=== PATIENT | male | born 1980 | race Caucasian/White ===

== ENCOUNTER 2022-09-11 15:06 | Inpatient (IN) | payer MEDICAID ==
[~2022-09-11] VITALS: Ht 167.6 cm; Wt 81.2 kg
[2022-09-11 15:16] VITALS: BP 126/65
--- NOTE | 2022-09-11 15:18 | NUR ---
PT AMBULATED TO BED 5.
--- NOTE | 2022-09-11 15:28 | NUR ---
42YO MALE PT C/O THROBBING 10/10 L ARM PAIN X4DAYS. REPORTS ONSET AFTER POSSIBLE "SPIDER BITE" WHILE SITTING IN BACKYARD. PRESENTS WITH REDDENED NON PITTING SWELLING THROUGHOUT L ARM , MOST NOTED IN AC . CAP <3 REFILL THROUGHOUT , -LOSS OF SENSATION -NUMBING. PT UNABLE TO BEND AT ELBOW DUE TO SWELLING AND PAIN. DENIES TAKING MEDICATION, N/V/D, FEVER, CHILLS , SOB OR CHEST PAIN. PT AAOX4, HOB POSITIONED PER COMFORT. HX:DENIES NKA
--- NOTE | 2022-09-11 15:47 | NUR ---
MD CROSS AT BEDSIDE FOR EVALUATION
--- NOTE | 2022-09-11 15:48 | NUR ---
42/M PRESENTS TO ED WITH C/O LEFT ARM PAIN X4 DAYS S/P POSSIBLE BUG BITE IN HIS BACKYARD. PATIENT DENIES FEVERS, CHILLS, SOB, REDNESS, SWELLING AND TENDERNESS NOTED TO LEFT ARM. PATIENT DENIES NUMBNESS OR TINGLING, DENIES DRAINAGE FROM SITE.
[2022-09-11] MEDS ORDERED: PIPERACILLIN/TAZOBACTAM 3.375 GM in DEXTROSE 5% 50 ML IV ONE (16:00)
[2022-09-11] MEDS ORDERED: NACL 0.9% 1,000 ML IV ONE ×2 (16:00→18:05)
[2022-09-11] MEDS ORDERED: VANCOMYCIN 1,000 MG in DEXTROSE 5% 250 ML IV ONE (16:00)
--- NOTE | 2022-09-11 16:33 | NUR ---
RODGER SWAB COLLECTED AND WALKED TO LAB
[2022-09-11] MEDS ORDERED: PIPERACILLIN/TAZOBACTAM 3.375 GM VIAL IV ONE ×2 (16:55→23:44)
[2022-09-11] MEDS ORDERED: ONDANSETRON 4 MG/2 ML VIAL IVP ONE (16:55)
[2022-09-11] MEDS ORDERED: KETOROLAC 30 MG/ML VIAL IVP ONE (16:55)
[2022-09-11] MEDS ORDERED: MORPHINE SULFATE 4 MG/ML SYR IVP ONE (16:55)
--- NOTE | 2022-09-11 17:18 | NUR ---
pt encouraged to give urine sample. urinal left at bedside
[2022-09-11 17:29] LABS: BASOPHILS % (AUTO) 0.2 % (0.0-2.0); EOSINOPHILS # (AUTO) 0.1 K/uL (0-0.4); EOSINOPHILS % (AUTO) 0.8 % (0.0-4.0); HEMATOCRIT 37.1 % (36-52); HEMOGLOBIN 12.1 g/dL (12.0-18.0); LYMPHOCYTES # (AUTO) 1.8 K/uL (2.0-11.5); LYMPHOCYTES % (AUTO) 17.8 % (20.5-51.1); MEAN CORPUSCULAR HEMOGLOBIN 26 pg (27-31); MEAN CORPUSCULAR HGB CONC 33 g/dL (33-37); MEAN CORPUSCULAR VOLUME 80.7 fL (80-94); MONOCYTES # (AUTO) 0.5 K/uL (0.8-1.0); MONOCYTES % (AUTO) 5.1 % (1.7-9.3); NEUTROPHILS # (AUTO) 7.9 K/uL (1.8-7.7); NEUTROPHILS % (AUTO) 76.1 % (42.2-75.2); PLATELET COUNT (AUTO) 251 K/uL (140-450); RED CELL DISTRIBUTION WIDTH 17.5 % (11.6-13.7); WHITE BLOOD COUNT (AUTO) 10.4 K/uL (4.8-10.8)
[2022-09-11 17:48] LABS: ALBUMIN 2.8 g/dL (3.4-5.0); ANION GAP 11.7 (8-16); CARBON DIOXIDE 28.3 mmol/L (21-32); CREATININE 0.8 mg/dL (0.6-1.3); TOTAL BILIRUBIN 0.3 mg/dL (0.0-1.0)
--- NOTE | 2022-09-11 17:55 | NUR ---
VERBAL ORDER RECEIVED FROM MD CROSS. ORDERS READ BACK , CONFIRMED AND CARRIED OUT. 1L NS BOLUS ONCE PT ON 2L VIA NC
--- NOTE | 2022-09-11 17:55 | NUR ---
pt w/ new onset of 10/10 burning abd pain. MADE AWARE
[2022-09-11 18:10] LABS: APPEARANCE,URINE CLEAR (CLEAR); BILIRUBIN,URINE NEGATIVE (NEGATIVE); BLOOD, URINE NEGATIVE (NEGATIVE); COLOR,URINE YELLOW (YELLOW); LEUKOCYTE ESTERASE ,URINE NEGATIVE (NEGATIVE); NITRITE, URINE NEGATIVE (NEGATIVE); UGLUCOSE NEGATIVE (NEGATIVE)
--- NOTE | 2022-09-11 18:10 | NUR ---
PER DR. CROSS, [facility] AT THIS TIME.
[2022-09-11] MEDS ORDERED: VANCOMYCIN 1,000 MG VIAL ONE (18:15)
--- NOTE | 2022-09-11 19:26 | NUR ---
REPORT GIVEN TO NOÉ MONTERROSO. TRANSFER OF CARE AT THIS TIME
--- NOTE | 2022-09-11 19:45 | NUR ---
pt is resting on the bed, alert oriented x4. No respiratory distress noted.
[2022-09-11] MEDS ORDERED: ZOLPIDEM 5 MG TAB PO PRN (20:45)
[2022-09-11] MEDS ORDERED: guaiFENesin DM 200/20 MG-10 ML 10 ML UDC PO PRN (20:45)
[2022-09-11] MEDS ORDERED: DOCUSATE SODIUM 100 MG GELCAP PO PRN (20:45)
[2022-09-11] MEDS ORDERED: ACETAMINOPHEN 325 MG TAB PO PRN (20:45)
[2022-09-11] MEDS ORDERED: POTASSIUM CHLORIDE 10 MEQ TABER PO PRN (20:45)
[2022-09-11] MEDS ORDERED: ONDANSETRON 4 MG/2 ML VIAL IM/IVP PRN (20:45)
[2022-09-11] MEDS ORDERED: HYDROcodone/APAP 7.5/325 MG 1 TAB PO PRN (20:45)
[2022-09-11 21:55] VITALS: BP 131/69
--- NOTE | 2022-09-11 21:55 | NUR ---
PATIENT ADMITTED FROM ED, CAME VIA GURNEY. PATIENT IS ALERT AND ORIENTED X4, NO SIGNS OF DISTRESS NOTED. PATIENT IS AMBULATORY WITH STEADY GAIT, IS CONTINENT, USES THE RESTROOM. PATIENT'S LEFT UPPER IS SWOLLEN, HAS DIAGNOSIS OF CELLULITIS OF THE LEFT UPPER EXTREMITY. PATIENT ON ROOM AIR, IV ACCESS SITE ON RIGHT AC G 20, INTACT AND PATENT, RUNNING NS @ 100 ML/HR. MRSA SWAB DONE. ORIENTED PATIENT TO HIS ROOM, AND USE OF CALL LIGHT. SAFETY PRECAUTIONS IN PLACE. WILL CONTINUE TO MONITOR THE PATIENT.
[2022-09-11] MEDS: NACL 0.9% 1,000 ML IV SCH (22:00)
--- NOTE | 2022-09-11 22:24 | NUR ---
Patient will be admitted to care of dr interiano. Admited to [facility]. Will go to room 120 b. Belongings list completed. Report to della. pt left with his belonings
[2022-09-11 23:17] LABS: PROTHROMBIN TIME 9.2 secs (10.8-13.4)
[2022-09-11 23:18] LABS: CHOL/HDL RATIO 2.4 (1-4.5); FREE T4 (FREE THYROXINE) 1.32 ng/dL (0.76-1.46); MAGNESIUM 1.9 mg/dL (1.8-2.4); PHOSPHORUS 3.1 mg/dL (2.5-4.9); THYROID STIMULATING HORMONE 0.68 uIU/mL (0.34-3.74)
[2022-09-11] MEDS: PIPERACILLIN/TAZOBACTAM 3.375 GM in DEXTROSE 5% 50 ML IV SCH (23:49)
--- NOTE | 2022-09-11 23:50 | NUR ---
DUE ZOSYN GIVEN ORDERED.
[2022-09-12 01:40] LABS: BARBITURATE, URINE NEGATIVE ng/ml (NEG <=200); BENZODIAZEPINE, URINE NEGATIVE ng/mL (NEG <=200); CANNABINOID, URINE NEGATIVE ng/mL (NEG <=50); COCAINE, URINE NEGATIVE ng/mL (NEG <=300); OPIATE, URINE POSITIVE ng/mL (NEG <=2000); PHENCYCLIDINE SCREEN,URINE NEGATIVE ng/mL (NEG <=25)
--- NOTE | 2022-09-12 02:30 | NUR ---
PATIENT IS ASLEEP, NO SIGNS OF PAIN NOTED, BREATHING EVEN AND NON LABORED ON ROOM AIR, CALL LIGHT WITHIN REACH.
[2022-09-12] MEDS: MORPHINE SULFATE 2 MG/ML SYR IVP PRN ×2 (03:23→06:38)
--- NOTE | 2022-09-12 03:23 | NUR ---
PATIENT C/O 10/10 PAIN ON LEFT UE, PRN MORPHINE GIVEN ORDERED. BP 133/83. WILL CONTINUE TO MONITOR THE PATIENT. SAFETY PRECAUTIONS IN PLACE. CALL LIGHT WITHIN REACH.
[2022-09-12 04:00] VITALS: BP 133/92
[2022-09-12] MEDS ORDERED: PIPERACILLIN/TAZOBACTAM 3.375 GM VIAL IV ONE (05:12)
[2022-09-12] MEDS: PIPERACILLIN/TAZOBACTAM 3.375 GM in DEXTROSE 5% 50 ML IV SCH ×3 (05:23→17:02)
--- NOTE | 2022-09-12 05:25 | NUR ---
DUE ZOSYN GIVEN ORDERED. WILL CONTINUE TO MONITOR THE PATIENT. CALL LIGHT WITHIN REACH
--- NOTE | 2022-09-12 06:38 | NUR ---
PATIENT C/O 10/10 PAIN ON LEFT UPPER EXTREMITY, PRN MORPHINE GIVEN ORDERED. BP 132/89. WILL CONTINUE TO MONITOR THE PATIENT.
[2022-09-12] MEDS: NACL 0.9% 1,000 ML IV SCH ×2 (06:41→12:25)
[2022-09-12 07:20] LABS: ANION GAP 11.5 (8-16); CARBON DIOXIDE 27.8 mmol/L (21-32); CREATININE 0.8 mg/dL (0.6-1.3); POTASSIUM 4.3 mmol/L (3.5-5.1)
[2022-09-12 07:24] LABS: BASOPHILS % (AUTO) 0.3 % (0.0-2.0); EOSINOPHILS # (AUTO) 0.1 K/uL (0-0.4); EOSINOPHILS % (AUTO) 0.6 % (0.0-4.0); HEMATOCRIT 34.7 % (36-52); HEMOGLOBIN 11.2 g/dL (12.0-18.0); LYMPHOCYTES # (AUTO) 1.1 K/uL (2.0-11.5); MEAN CORPUSCULAR HEMOGLOBIN 26 pg (27-31); MEAN CORPUSCULAR HGB CONC 32 g/dL (33-37); MEAN CORPUSCULAR VOLUME 81.4 fL (80-94); MONOCYTES # (AUTO) 0.4 K/uL (0.8-1.0); MONOCYTES % (AUTO) 4.6 % (1.7-9.3); NEUTROPHILS # (AUTO) 8.1 K/uL (1.8-7.7); NEUTROPHILS % (AUTO) 83.5 % (42.2-75.2); PLATELET COUNT (AUTO) 231 K/uL (140-450); RED BLOOD CELL COUNT(AUTO) 4.27 MIL/uL (4.20-6.10); RED CELL DISTRIBUTION WIDTH 17.4 % (11.6-13.7); WHITE BLOOD COUNT (AUTO) 9.7 K/uL (4.8-10.8)
--- NOTE | 2022-09-12 07:27 | NUR ---
ASSUMED CONTINUITY OF CARE. INITIAL ASSESSMENT DONE. LUE ELEVATED WITH PILLOW. CALL LIGHT WITHIN REACH.
--- NOTE | 2022-09-12 07:27 | NUR ---
ENDORSED PATIENT TO NURSE MAGGIE FOR CONTINUITY OF CARE. NEEDS MET THROUGHOUT THE SHIFT. PATIENT IN STABLE CONDITION.
[2022-09-12 08:00] VITALS: BP 143/91
[2022-09-12] MEDS ORDERED: MORPHINE SULFATE 4 MG/ML SYR IVP PRN (08:16)
[2022-09-12] MEDS: PANTOPRAZOLE 40 MG TABEC PO SCH ×2 (09:00→09:06)
--- NOTE | 2022-09-12 10:56 | NUR ---
PATIENT HAS BEEN SCREENED AND CATEGORIZED MODERATE NUTRITION RISK. PATIENT WILL BE SEEN WITHIN 3-5 DAYS OF ADMISSION. REVIEWED BY SATYA CARY RD
[2022-09-12] MEDS: MORPHINE SULFATE 4 MG/ML SYR IVP PRN ×3 (12:30→20:53)
[2022-09-12 16:00] VITALS: BP 142/83
--- NOTE | 2022-09-12 19:10 | NUR ---
REPORT GIVEN TO JAYME SQUIRES. IVF INFUSING WELL. IN STABLE CONDITION.
--- NOTE | 2022-09-12 19:30 | NUR ---
RECEIVED PATIENT SITTING ON THE CHAIR, EATING, NO SIGNS OF DISTRESS NOTED, NO C/O PAIN. IV NS RUNNING @ 100ML/HR ON RIGHT WRIST, LINE PATENT AND INTACT. WILL CONTINUE TO MONITOR THE PATIENT.
--- NOTE | 2022-09-12 20:53 | NUR ---
PATIENT C/O 10/10 PAIN ON LEFT UPPER EXTREMITY, PRN MORPHINE GIVEN ORDERED. VITALS T 98.7, P 98, BP 137/88, RESP 18 AND O2 SATS 99% ON ROOM AIR. CALL LIGHT WITHIN REACH, BED IN LOW AND LOCKED POSITION. SAFETY MEASURES MAINTAINED.
--- NOTE | 2022-09-12 21:53 | NUR ---
PATIENT IS ASLEEP, NO SIGNS OF PAIN, NO SIGNS OF DISTRESS NOTED, BREATHING EVEN AND NON LABORED. CALL LIGHT WITHIN REACH. WILL CONTINUE TO MONITOR THE PATIENT.
[2022-09-13] MEDS: MORPHINE SULFATE 4 MG/ML SYR IVP PRN ×6 (00:20→20:01)
--- NOTE | 2022-09-13 00:20 | NUR ---
PRN MORPHINE GIVEN FOR PAIN OF 10/10 ON LUE, BP 141/88. CALL LIGHT WITHIN REACH. SAFETY PRECAUTIONS MAINTAINED.
[2022-09-13] MEDS: PIPERACILLIN/TAZOBACTAM 3.375 GM in DEXTROSE 5% 50 ML IV SCH ×5 (00:29→23:39)
[2022-09-13] MEDS: NACL 0.9% 1,000 ML IV SCH ×3 (02:07→23:39)
--- NOTE | 2022-09-13 03:48 | NUR ---
VITALS T 98.2, P 96, BP 139/89, RESP 18 AND SATING @97% ON ROOM AIR. PATIENT C/O 10/10 PAIN ON LUE, PRN MORPHINE GIVEN PER MD ORDER. SAFETY MEASURES IN PLACE. CALL LIGHT WITHIN REACH. WILL CONTINUE TO MONITOR THE PATIENT.
[2022-09-13 04:00] VITALS: BP 139/89
[2022-09-13 05:48] LABS: BASOPHILS % (AUTO) 0.4 % (0.0-2.0); EOSINOPHILS # (AUTO) 0.1 K/uL (0-0.4); EOSINOPHILS % (AUTO) 1.3 % (0.0-4.0); HEMATOCRIT 33.8 % (36-52); HEMOGLOBIN 11.3 g/dL (12.0-18.0); LYMPHOCYTES # (AUTO) 1.1 K/uL (2.0-11.5); LYMPHOCYTES % (AUTO) 13.8 % (20.5-51.1); MEAN CORPUSCULAR HEMOGLOBIN 27 pg (27-31); MEAN CORPUSCULAR HGB CONC 34 g/dL (33-37); MEAN CORPUSCULAR VOLUME 80.2 fL (80-94); MONOCYTES # (AUTO) 0.5 K/uL (0.8-1.0); MONOCYTES % (AUTO) 6.6 % (1.7-9.3); NEUTROPHILS # (AUTO) 6.4 K/uL (1.8-7.7); NEUTROPHILS % (AUTO) 77.9 % (42.2-75.2); PLATELET COUNT (AUTO) 230 K/uL (140-450); RED BLOOD CELL COUNT(AUTO) 4.21 MIL/uL (4.20-6.10); RED CELL DISTRIBUTION WIDTH 17.7 % (11.6-13.7); WHITE BLOOD COUNT (AUTO) 8.2 K/uL (4.8-10.8)
[2022-09-13 06:19] LABS: ANION GAP 10.4 (8-16); CARBON DIOXIDE 28.3 mmol/L (21-32); CREATININE 0.7 mg/dL (0.6-1.3); POTASSIUM 3.7 mmol/L (3.5-5.1)
--- NOTE | 2022-09-13 06:51 | NUR ---
PRN MORPHINE GIVEN, PATIENT C/O 06/19 PAIN ON LUE, BP 141/87. NO SIGNS OF DISTRESS NOTED.
--- NOTE | 2022-09-13 07:16 | NUR ---
ASSUMED CONTINUITY OF CARE. RESTING ON BED COMFORTABLY. INITIAL ASSESSMENT DONE. EXPLAINED DIAGNOSIS, PLAN OF CARE, PAIN MANAGEMENT TEACHING, USE OF CALL LIGHT/BED/TV/BATHROOM. VERBALIZED UNDERSTANDING. CALL LIGHT WITHIN REACH.
--- NOTE | 2022-09-13 07:16 | NUR ---
PATIENT IN STABLE CONDITION. ENDORSED PATIENT TO DAY NURSE FOR CONTINUITY OF CARE. NEEDS MET THROUGHOUT THE SHIFT.
[2022-09-13 08:00] VITALS: BP 123/68
[2022-09-13 08:07] LABS: T4 (THYROXINE) 8.4 ug/dL (4.5-12.0)
[2022-09-13] MEDS: PANTOPRAZOLE 40 MG TABEC PO SCH (09:00)
[2022-09-13 16:00] VITALS: BP 120/68
--- NOTE | 2022-09-13 16:00 | NUR ---
REFUSED TYLENOL FOR FEVER 100.8. APPLIED COOLING MEASURE. INFORMED CHARGE NURSE.
--- NOTE | 2022-09-13 18:45 | NUR ---
RE-CHECKED TEMPORAL TEMP 99.0 AT THIS TIME. CONTINUE APPLICATION OF COOLING MEASURE.
--- NOTE | 2022-09-13 19:25 | NUR ---
REPORT GIVEN TO ERMA SQUIRES. IVF INFUSING WELL. IN STABLE CONDITION.
--- NOTE | 2022-09-13 19:30 | NUR ---
RECEIVED REPORT FROM DAY SHIFT NURSE MAGGIE FOR CONTINUITY OF CARE. PATIENT IS A&O X4. PATIENT IS ON ROOM AIR; BREATHING IS NORMAL WITH SYMMETRICAL RISE AND FALL OF CHEST. PATIENT'S IV IS A 22G R WRIST; RUNNING NS AT 100. PATIENT IS AWAKE, BUT LYING SEMI-FOWLERS IN BED. BED IS IN LOWEST POSITION, WHEELS LOCKED, CALL LIGHT IN PLACE. WILL CONTINUE TO OBSERVE PATIENT.
[2022-09-13 20:00] VITALS: BP 137/88
--- NOTE | 2022-09-13 21:39 | NUR ---
DR. DOBSON SAW PATIENT. DR DOBSON INFORMED ME THAT THE PATIENT MAY HAVE NECROTIC FASCIITIS AND HE HAS SPOKEN TO THE SURGEON TO TRANSFER PATIENT TO A HIGH LEVEL OF CARE FOR SURGERY. PATIENT WAS INFORMED OF THIS AND STATED THAT HE WILL STAY THE NIGHT, BUT MAY DECIDE TO LEAVE AMA TO A DIFFERENT HOSPITAL. PATIENT WILL DECIDE IN THE MORNING.
[2022-09-14] MEDS: MORPHINE SULFATE 4 MG/ML SYR IVP PRN ×3 (00:35→08:41)
--- NOTE | 2022-09-14 01:00 | NUR ---
PATIENT CALLED AND REQUESTED MORPHINE FOR 7/10 L ARM PAIN. BP WAS 137/88, HR WAS 85. CHECKED PATIENT'S CHART, MORPHINE WAS APPROPRIATE TO ADMINISTER. ADMINISTERED MORPHINE TO PATIENT AT 2001. PATIENT TOLERATED WELL. ADMINISTERED 0000 ZOSYN TO PATIENT; REMOVED PATIENT'S FOOD AND DRINKS AT 0000; PATIENT IS NOW NPO PER DR. DOBSON. PATIENT CALLED AT 0030 AND REQUESTED MORPHINE FOR 7/10 L ARM PAIN. BP WAS 131/68, HR WAS 88. CHECKED PATIENT'S CHART, MORPHINE WAS APPROPRIATE TO ADMINISTER. ADMINISTERED MEDICATION TO PATIENT. PATIENT TOLERATED WELL. BREATHING WAS NORMAL WITH SYMMETRICAL RISE AND FALL OF CHEST. WILL CONTINUE TO OBSERVE PATIENT.
[2022-09-14 04:00] VITALS: BP 132/83
--- NOTE | 2022-09-14 05:30 | NUR ---
PATIENT REQUESTED MORPHINE FOR 7/10 LEFT ARM PAIN. ADMINISTERED MORPHINE TO PATIENT AT 0443. PATIENT TOLERATED WELL. PATIENT REQUESTED TO SPEAK TO THE DOCTOR ABOUT EATING. MESSAGED SUPERVISOR ALTERATION WORKROOM PHYSICIAN (ROMARIO) ABOUT PATIENT'S REQUEST TO EAT; INFORMING HER THAT DR. DOBSON STATED TO LEAVE PATIENT NPO AFTER MIDNIGHT EVEN THOUGH WE ARE NOT DOING THE SURGERY HERE BECAUSE HE MAY BE TRANSFERED TO ANOTHER FACILITY FOR HIGHER LEVEL OF CARE. ROMARIO RESPONDED TO KEEP PATIENT NPO BECAUSE EMERGENCY I&D MAY NEED TO BE DONE. INFORMED THE PATIENT OF THIS AND THE PATIENT STILL DIDN'T SEE WHY HE COULDN'T HAVE ANYTHING, BUT SAID HE WOULD WAIT FOR THE DOCTORS TO SHOW UP IN THE MORNING SO HE COULD TALK TO THEM.
[2022-09-14 06:02] LABS: BASOPHILS % (AUTO) 0.4 % (0.0-2.0); EOSINOPHILS # (AUTO) 0.1 K/uL (0-0.4); EOSINOPHILS % (AUTO) 0.9 % (0.0-4.0); HEMATOCRIT 34.9 % (36-52); HEMOGLOBIN 11.5 g/dL (12.0-18.0); LYMPHOCYTES # (AUTO) 0.9 K/uL (2.0-11.5); LYMPHOCYTES % (AUTO) 10.3 % (20.5-51.1); MEAN CORPUSCULAR HEMOGLOBIN 26 pg (27-31); MEAN CORPUSCULAR HGB CONC 33 g/dL (33-37); MEAN CORPUSCULAR VOLUME 79.7 fL (80-94); MONOCYTES # (AUTO) 0.5 K/uL (0.8-1.0); MONOCYTES % (AUTO) 5.9 % (1.7-9.3); NEUTROPHILS # (AUTO) 7.5 K/uL (1.8-7.7); NEUTROPHILS % (AUTO) 82.5 % (42.2-75.2); PLATELET COUNT (AUTO) 258 K/uL (140-450); RED BLOOD CELL COUNT(AUTO) 4.37 MIL/uL (4.20-6.10); RED CELL DISTRIBUTION WIDTH 17.1 % (11.6-13.7); WHITE BLOOD COUNT (AUTO) 9.1 K/uL (4.8-10.8)
[2022-09-14 06:31] LABS: ANION GAP 14.3 (8-16); CARBON DIOXIDE 23.7 mmol/L (21-32); CREATININE 0.6 mg/dL (0.6-1.3)
[2022-09-14] MEDS: PIPERACILLIN/TAZOBACTAM 3.375 GM in DEXTROSE 5% 50 ML IV SCH (06:51)
--- NOTE | 2022-09-14 07:30 | NUR ---
ENDORSED TO DAY SHIFT NURSE CANDIDA FOR CONTINUITY OF CARE. PATIENT IS STABLE.
[2022-09-14 08:00] VITALS: BP 109/52
[2022-09-14] MEDS: PANTOPRAZOLE 40 MG TABEC PO SCH (08:43)
[2022-09-14] MEDS: NACL 0.9% 1,000 ML IV SCH (08:45)
--- NOTE | 2022-09-14 09:54 | NUR ---
PATIENT LEAVING AGAINST MEDICAL ADVICE. WANTS TO HAVE SURGERY. UNABLE TO WAIT. WILL NOTIFY MD.
--- NOTE | 2022-09-14 10:05 | NUR ---
PATIENT NOW REFUSES TO SIGN AMA. WANTS TO [facility].
== END 2022-09-14 10:15 | disposition left against medical advice (07) | DRG 720 ==
LOC: MED 15:06 → MMU 20:12 → MTU 20:43
PROVIDERS: ADMIT Family Medicine; ATTEND Family Medicine
DX: A41.9 Sepsis, unspecified organism (principal); E43 Unspecified severe protein-calorie malnutrition; M60.022 Infective myositis, left upper arm; L03.114 Cellulitis of left upper limb; R73.9 Hyperglycemia, unspecified; E83.51 Hypocalcemia; Z20.822 Contact with and (suspected) exposure to COVID-19; Z53.29 Procedure and treatment not carried out because of patient's decision for other reasons; Z68.28 Body mass index [BMI] 28.0-28.9, adult
CPT/HCPCS: 36415; 71045; 73201; 80048; 80053; 80305; 81003; 82150; 83036; 83605; 83690; 83735; 83880; 84100; 84436; 84439; 84443; 84479; 85025; 85610; 85651; 85730; 86140; 87040; 87081; 87086; 96361; 96365; 96367; 96375; 99285; J1885; J2270; J2405; J2543; J3370; J7030; J7060; Q9967